=== PATIENT | female | born 1960 | race Caucasian/White ===

== ENCOUNTER → 2016-07-27 | Outpatient (CLI) | payer BC ==
[~2016-07-27] VITALS: Ht 167.6 cm; Wt 104.3 kg
[~2016-07-27] MED LIST: ASPI1TAB PO; ATEN50TA2 PO; ATOR1TAB19 PO; GEOD60CA PO; LOSA50TA21 PO; METF500T PO; NS 500 ML IV SCH; PROPOFOL 200 MG/20 ML VIAL As Ordered ONE
--- NOTE | 2016-07-27 07:46 | ROOR ---
Patient Name: Briseyda Loomis Procedure Date: 07/27/2016 7:24 AM Date of : 1960 Age: 56 Room: [facility] Gender: Female Note Status: Finalized Procedure: Colonoscopy Indications: Colon cancer screening in patient at increased risk: Family history of 1st-degree relative with colon polyps at age 60 years (or older) Providers: Ross Rizzo Jr, MD Referring MD: Agatha Jones DO Requesting Provider: Medicines: Propofol per Anesthesia Complications: No immediate complications. Procedure: Pre-Anesthesia Assessment: - Prior to the procedure, a History and Physical was performed, and patient medications and allergies were reviewed. The patient is competent. The risks and benefits of the procedure and the sedation options and risks were discussed with the patient. All questions were answered and informed consent was obtained. Patient identification and proposed procedure were verified by the physician and the nurse in the pre-procedure area and in the procedure room. Mental Status Examination: alert and oriented. Airway Examination: normal oropharyngeal airway and neck mobility. Respiratory Examination: clear to auscultation. CV Examination: normal. ASA Grade Assessment: II - A patient with mild systemic disease. After reviewing the risks and benefits, the patient was deemed in satisfactory condition to undergo the procedure. The anesthesia plan was to use moderate sedation / analgesia (conscious sedation). Immediately prior to administration of medications, the patient was re-assessed for adequacy to receive sedatives. The heart rate, respiratory rate, oxygen saturations, blood pressure, adequacy of pulmonary ventilation, and response to care were monitored throughout the procedure. The physical status of the patient was re-assessed after the procedure. The Colonoscope was introduced through the anus and advanced to the cecum, identified by appendiceal orifice and ileocecal valve. The colonoscopy was performed without difficulty. The patient tolerated the procedure well. The quality of the bowel preparation was adequate and good. Findings: The perianal and digital rectal examinations were normal. Pertinent negatives include normal sphincter tone, no palpable rectal lesions and no anal lesion or abnormality was detected. Multiple small-mouthed diverticula were found in the sigmoid colon. The rectum, recto-sigmoid colon, descending colon, transverse colon, ascending colon, cecum, appendiceal orifice and ileocecal valve appeared normal. Impression: - Diverticulosis in the sigmoid colon. - The rectum, recto-sigmoid colon, descending colon, transverse colon, ascending colon, cecum, appendiceal orifice and ileocecal valve are normal. - No specimens collected. Recommendation: - Discharge patient to home (ambulatory). - Repeat colonoscopy in 10 years for screening purposes. Ross Rizzo MD Ross Rizzo Jr, MD 07/27/2016 7:46:25 AM This report has been signed electronically. Number of Addenda: 0 Note Initiated On: 07/27/2016 7:24 AM Estimated Blood Loss: Estimated blood loss: none.
[2016-07-27 08:00] VITALS: BP 133/76
== END ==
LOC: M OPP 06:07
PROVIDERS: ATTEND Surgery
DX: Z12.11 Encounter for screening for malignant neoplasm of colon (principal); Z83.71 Family history of colonic polyps; K57.30 Diverticulosis of large intestine without perforation or abscess without bleeding; E11.9 Type 2 diabetes mellitus without complications; I10 Essential (primary) hypertension; F41.9 Anxiety disorder, unspecified; F32.9 Major depressive disorder, single episode, unspecified; E66.9 Obesity, unspecified; I34.1 Nonrheumatic mitral (valve) prolapse; D30.01 Benign neoplasm of right kidney; Z79.82 Long term (current) use of aspirin; Z79.84 Long term (current) use of oral hypoglycemic drugs; Z79.899 Other long term (current) drug therapy

== ENCOUNTER → 2017-05-15 | Outpatient (REF) | payer OTHER | LOC: M LAB REF 17:22 | DX: Z12.4 Encounter for screening for malignant neoplasm of cervix (principal) | CPT/HCPCS: G0123 ==

== ENCOUNTER 2017-06-18 13:40 | Emergency (ER) | payer OTHER ==
[2017-06-18] MEDS: ONDANSETRON 4MG/2ML VIAL (J2405) IV (15:30)
[2017-06-18 15:34] LABS: KETONE, URINE AUTO RFX NEGATIVE (NEGATIVE); MUCUS, URINE RFX MODERATE (NEGATIVE); RBC, URINE AUTO RFX 6 /HPF (0-3); SPECIFIC GRAVITY UR AUTO RFX 1.024 (1.002-1.035); SQUAM EPITHELIAL CELL UR AURFX 21 /HPF (0-6)
[2017-06-18 15:41] LABS: LEUKOCYTE ESTERASE UR AUTO RFX 2+ (NEGATIVE); NITRITE, URINE AUTO RFX POSITIVE (NEGATIVE); WBC, URINE AUTO RFX 103 /HPF (0-3)
[2017-06-18] MEDS: NS 1,000 ML IV (15:51)
[2017-06-18 15:52] LABS: BASO # 0.1 10^3/uL (0.0-0.2); BASO % 0.3 % (0.0-1.0); EOS # 0.1 10^3/uL (0.0-0.50); EOS % 0.5 % (0.0-3.0); HEMATOCRIT 36.3 % (36.0-47.0); LYMPH # 2.4 10^3/uL (1.5-4.5); LYMPH % 15.7 % (24.0-44.0); MEAN CORPUSCULAR HEMOGLOBIN 29.5 pg (27.0-33.0); MEAN CORPUSCULAR HGB CONC 35.8 g/dl (32.0-36.5); MEAN CORPUSCULAR VOLUME 82.5 fl (80.0-96.0); MONO # 0.8 10^3/uL (0.0-0.8); MONO % 5.3 % (0.0-5.0); NEUTROPHILS # 11.9 10^3/uL (1.8-7.7); NEUTROPHILS % 77.2 % (36.0-66.0); PLATELET COUNT, AUTOMATED 228 10^3/uL (150-450); RED CELL DISTRIBUTION WIDTH 12.2 % (11.5-14.5); WHITE BLOOD COUNT 15.4 10^3/uL (4.0-10.0)
[2017-06-18] MEDS: MORPHINE 4 MG/ML 1ML VIAL (J2270) IV (15:52)
[2017-06-18 16:02] LABS: CALCIUM OXALATE CRYSTALS RFX MODERATE; KETONE, URINE AUTO RFX NEGATIVE (NEGATIVE); LEUKOCYTE ESTERASE UR AUTO RFX NEGATIVE (NEGATIVE); MUCUS, URINE RFX SMALL (NEGATIVE); NITRITE, URINE AUTO RFX NEGATIVE (NEGATIVE); RBC, URINE AUTO RFX 2 /HPF (0-3); SPECIFIC GRAVITY UR AUTO RFX 1.028 (1.002-1.035); SQUAM EPITHELIAL CELL UR AURFX 3 /HPF (0-6); WBC, URINE AUTO RFX 2 /HPF (0-3)
[2017-06-18 16:15] LABS: ALBUMIN 3.6 GM/DL (3.2-5.2); ALBUMIN/GLOBULIN RATIO 0.95 (1.00-1.93); ALKALINE PHOSPHATASE 79 U/L (45-117); ALT/SGPT 28 U/L (12-78); ANION GAP 9 MEQ/L (8-16); AST/SGOT 22 U/L (7-37); BILIRUBIN,DIRECT 0.3 MG/DL (0.0-0.2); BILIRUBIN,TOTAL 1.3 MG/DL (0.2-1.0); BLOOD UREA NITROGEN 11 MG/DL (7-18); CALCIUM LEVEL 9.3 MG/DL (8.5-10.1); CARBON DIOXIDE LEVEL 25 MEQ/L (21-32); CHLORIDE LEVEL 102 MEQ/L (98-107); CREATININE FOR GFR 0.79 MG/DL (0.55-1.30); GLOMERULAR FILTRATION RATE > 60.0 (>51); GLUCOSE, FASTING 122 MG/DL (70-100); LIPASE 145 U/L (73-393); POTASSIUM SERUM 3.6 MEQ/L (3.5-5.1); SODIUM LEVEL 136 MEQ/L (136-145); TOTAL PROTEIN 7.4 GM/DL (6.4-8.2)
[2017-06-18] MEDS ORDERED: ISOVUE-370 76% 100ML VIAL (Q9967) As Ordered (16:52)
== END 2017-06-18 19:23 | disposition home or self-care (01) ==
LOC: M ED 13:40
DX: K57.32 Diverticulitis of large intestine without perforation or abscess without bleeding (principal); E11.9 Type 2 diabetes mellitus without complications; I10 Essential (primary) hypertension; E78.5 Hyperlipidemia, unspecified; F41.9 Anxiety disorder, unspecified; I25.2 Old myocardial infarction; I34.1 Nonrheumatic mitral (valve) prolapse; Z79.899 Other long term (current) drug therapy; Z79.82 Long term (current) use of aspirin; Z79.84 Long term (current) use of oral hypoglycemic drugs
CPT/HCPCS: J2270

== ENCOUNTER → 2022-11-16 | Outpatient (REF) | payer OTHER, BC ==
[~2022-11-16] MED LIST changes: -ASPI1TAB PO; +ASPI81TA26 PO; +CIPR-249 PO; +FLAG500T PO; +HYDR-3715 PO; -LOSA50TA21 PO; +LOSA50TA5 PO; -METF500T PO; +METF500T13 PO; -NS 500 ML IV SCH; -PROPOFOL 200 MG/20 ML VIAL As Ordered ONE
[2022-11-16 17:59] LABS: APPEARANCE, URINE HAZY (CLEAR); BACTERIA, URINE AUTO 2+ (NEGATIVE); BILIRUBIN, URINE AUTO NEGATIVE (NEGATIVE); BLOOD, URINE BLOOD NEGATIVE (NEGATIVE); COLOR, URINE YELLOW (YELLOW); GLUCOSE, URINE (UA) AUTO NEGATIVE (NEGATIVE); KETONE, URINE AUTO NEGATIVE (NEGATIVE); LEUKOCYTE ESTERASE, URINE AUTO 1+ (NEGATIVE); MUCUS, URINE SMALL (NEGATIVE); NITRITE, URINE AUTO NEGATIVE (NEGATIVE); PROTEIN, URINE AUTO NEGATIVE (NEGATIVE); RBC, URINE AUTO 1 /HPF (0-3); SQUAMOUS EPITHELIAL CELL UR AU 9 /HPF (0-6); UROBILINOGEN, URINE AUTO 0.2 mg/dL (0.0-2.0); WBC, URINE AUTO 6 /HPF (0-3)
== END ==
LOC: M SMT 17:13
PROVIDERS: ATTEND Specialist
DX: N30.91 Cystitis, unspecified with hematuria (principal)

== ENCOUNTER → 2024-01-18 | Outpatient (REF) | payer MEDICARE ==
[2024-01-18 14:50] LABS: APPEARANCE, URINE CLEAR (CLEAR); BACTERIA, URINE AUTO 1+ (NEGATIVE); BILIRUBIN, URINE AUTO NEGATIVE (NEGATIVE); BLOOD, URINE BLOOD NEGATIVE (NEGATIVE); COLOR, URINE YELLOW (YELLOW); GLUCOSE, URINE (UA) AUTO NEGATIVE (NEGATIVE); KETONE, URINE AUTO NEGATIVE (NEGATIVE); LEUKOCYTE ESTERASE, URINE AUTO NEGATIVE (NEGATIVE); NITRITE, URINE AUTO NEGATIVE (NEGATIVE); PROTEIN, URINE AUTO NEGATIVE (NEGATIVE); RBC, URINE AUTO 1 /HPF (0-3); SQUAMOUS EPITHELIAL CELL UR AU 3 /HPF (0-6); UROBILINOGEN, URINE AUTO 0.2 mg/dL (0.0-2.0); WBC, URINE AUTO 2 /HPF (0-3)
== END ==
LOC: M SMT 13:09
PROVIDERS: ATTEND Specialist
DX: N30.91 Cystitis, unspecified with hematuria (principal)

== ENCOUNTER → 2024-10-21 | Outpatient (CLI) | payer MEDICARE ==
[2024-10-22 12:03] VITALS: TEMP 98.7
== END ==
LOC: M WHC 12:29
PROVIDERS: ATTEND Surgery
DX: N63.21 Unspecified lump in the left breast, upper outer quadrant (principal); C50.412 Malignant neoplasm of upper-outer quadrant of left female breast

== ENCOUNTER → 2024-11-17 | Outpatient (CLI) | payer MEDICARE ==
[~2024-11-17] MED LIST changes: +ATEN25TA PO; +HYDR12.510 PO; +LOSA50TA28 PO; +ZIPR60CA20 PO
== END ==
LOC: M PLARAD 10:16
PROVIDERS: ATTEND Surgery
DX: C50.112 Malignant neoplasm of central portion of left female breast (principal)
CPT/HCPCS: 78816; A9552

== ENCOUNTER → 2024-11-28 | Outpatient (CLI) | payer MEDICARE ==
[~2024-11-28] MED LIST changes: +DEXA4TA PO
== END ==
LOC: M IRPRO 09:25
PROVIDERS: ATTEND Internal Medicine Medical Oncology
DX: C50.912 Malignant neoplasm of unspecified site of left female breast (principal); Z79.899 Other long term (current) drug therapy
CPT/HCPCS: 36569; 93306; C1751

== ENCOUNTER → 2024-11-28 | Outpatient (CLI) | payer MEDICARE | LOC: M CARPUL 09:27 | PROVIDERS: ATTEND Internal Medicine Medical Oncology | DX: C50.919 Malignant neoplasm of unspecified site of unspecified female breast (principal) ==

== ENCOUNTER → 2024-12-20 | Outpatient (CLI) | payer MEDICARE ==
[~2024-12-20] VITALS: Ht 167.6 cm; Wt 95.5 kg
[~2024-12-20] MED LIST changes: +LEVO1TAB38 PO; +LIDO30CR18 TOP; +MAGICMW SSP; +NYST-38 PO; +ONDA-84 PO; +PROC10TA5 PO; +VALA1TAB5 PO
[2024-12-20 07:08] VITALS: TEMP 97.7
[2024-12-20] MEDS: LIDOCAINE 1% MDV 20 ML VIAL SC SCH (07:44)
[2024-12-20] MEDS: NS (Normal Saline) 0.9% 1,000 ML IV SCH (07:45)
[2024-12-20] MEDS: ceFAZolin SODIUM 2 GM in DEXTROSE 5% (D5W) ADV/MINI-BAG 50 ML IV ONE (07:45)
[2024-12-20] MEDS: MIDAZOLAM INJ 2 MG/2 ML VIAL IV PRN (07:46)
[2024-12-20 08:28] VITALS: BP 135/66; O2SAT 100
== END ==
LOC: M IRPRO 06:50
PROVIDERS: ATTEND Internal Medicine Medical Oncology
DX: C50.919 Malignant neoplasm of unspecified site of unspecified female breast (principal)
CPT/HCPCS: 36561; 99152; J0688; J1642; J2250; J3010

== ENCOUNTER → 2025-01-12 | Outpatient (POV) | payer MEDICARE ==
[~2025-01-12] MED LIST changes: +MAGN400T2 PO; +VALA500T5 PO
== END ==
LOC: M IRPOV 13:08
PROVIDERS: ATTEND Registered Nurse School
DX: Z45.2 Encounter for adjustment and management of vascular access device (principal); C50.919 Malignant neoplasm of unspecified site of unspecified female breast; Z88.8 Allergy status to other drugs, medicaments and biological substances

== ENCOUNTER → 2025-03-10 | Outpatient (CLI) | payer MEDICARE ==
[~2025-03-10] MED LIST changes: +ACYC-438 PO; +AMOX875T2 PO; +ERYT5OIN25; +FLUC-1 PO; +LASI20TA3 PO; +NYST-38 SS; +POTA-298 PO; +ZADI1DRO OU
== END ==
LOC: M RAD 15:59
DX: C50.912 Malignant neoplasm of unspecified site of left female breast (principal)